=== PATIENT | male | born 1990 | race African-American/Black ===

== ENCOUNTER 2019-04-04 09:15 | Emergency (ER) | payer SELFPAY ==
[~2019-04-04 09:15] MED LIST: Sodium Chloride 0.9% 100 ML BAG ONE
[2019-04-04] MEDS ORDERED: Ondansetron PF 4 MG/2 ML Vial ONE (09:44)
[2019-04-04] MEDS ORDERED: Sodium Chloride 0.9% 1,000 ML ONE ×2 (09:46→10:27)
[2019-04-04 10:06] LABS: Hemoglobin 15.5 g/dL (14.0-18.0); Mean Corpuscular HGB CONC 29.9 g/dL (32.0-36.0); Mean Corpuscular Hemoglobin 26.3 pg (27.0-31.0); Mean Corpuscular Volume 88.1 fL (78.0-98.0); Mean Platelet Volume 9.8 fL (7.4-10.4); Platelet Count 212 thou/uL (130-400); RBC Distribution Width 11.6 % (11.5-14.5); Red Blood Cell (RBC) Count 5.89 mill/uL (4.70-6.10); White Blood Cell (WBC) Count 10.6 thou/uL (4.8-10.8)
[2019-04-04 10:08] LABS: ALT (SGPT) 16 U/L (8-55); AST (SGOT) 22 U/L (5-34); Albumin 4.8 g/dL (3.5-5.0); Alkaline Phosphatase 38 U/L (40-110); Anion Gap 22 mmol/L (10-20); BUN (Urea Nitrogen) 13 mg/dL (8.9-20.6); Bilirubin, Total 1.3 mg/dL (0.2-1.2); CRP (Inflammatory) Less than 0.50 mg/dL (= or < 0.5); Calc. Creatinine Clearance 0 mL/min (70-130); Calcium 10.8 mg/dL (7.8-10.44); Carbon Dioxide 20 mmol/L (22-29); Chloride 105 mmol/L (98-107); Estimated GFR-MDRD Greater than 90; Globulin 3.7 g/dL (2.4-3.5); Glucose 104 mg/dL (70-105); Potassium 3.8 mmol/L (3.5-5.1); Protein, Total 8.5 g/dL (6.0-8.3); Sodium 143 mmol/L (136-145)
[2019-04-04 10:18] LABS: Band 6 % (5-11); Lymphocytes 8 % (21-51); MDiff Complete? YES; Manual Diff?? YES; Monocytes 4 % (0-10); Neutrophil 82 % (42-75); Platelet Morphology Comment Appears Adequate; RBC Morphology Normal
[2019-04-04] MEDS ORDERED: Dextrose 5 % And 0.9 % NaCl 1,000 ML ONE ×2 (11:39→14:14)
[2019-04-04] MEDS ORDERED: Iopamidol 370 76% 100 ML VIAL ONE (12:29)
[2019-04-04 12:35] LABS: Bilirubin Negative (Negative); Blood, Urine Negative (Negative); Clarity Clear (Clear); Glucose, Urine (Dipstick) 100 mg/dL (Negative); Leukocyte Negative (Negative); Nitrite Negative (Negative); Protein, Urine (Dipstick) Negative (Neg-Trace)
[2019-04-04] MEDS ORDERED: Promethazine HCl 25 MG/ML VIAL ONE (12:39)
[2019-04-04 12:47] LABS: Amphetamine Not Detected (NotDetected); Barbiturates Screen Not Detected (NotDetected); Benzodiazepine Screen Not Detected (NotDetected); Cocaine Metabolite Screen Not Detected (NotDetected); Medtox Control Line Valid? VALID (VALID); Methadone Not Detected (NotDetected); Methamphetamine Not Detected (NotDetected); Opiate Screen Not Detected (NotDetected); Oxycodone Screen Not Detected (NotDetected); Phencyclidine (PCP) Not Detected (NotDetected); THC/Cannabinoid Screen Detected (NotDetected); Tricyclic Screen Not Detected (NotDetected)
[2019-04-04 12:50] LABS: Lactic Acid 5.3 mmol/L (0.5-2.2)
--- NOTE | 2019-04-04 13:21 | RAD ---
EXAM: Single view of the chest HISTORY: Fever COMPARISON: None FINDINGS: Single view of the chest shows a normal sized cardiomediastinal silhouette. There is no sharon dence of consolidation, mass, or pleural effusion. The bones are unremarkable. IMPRESSION: No evidence of acute cardiopulmonary disease
[2019-04-04] MEDS ORDERED: Cefepime 2 GM VIAL ONE (14:14)
[2019-04-04] MEDS ORDERED: Vancomycin HCl 500 MG VIAL ONE ×3 (14:14→14:17)
[2019-04-04] MEDS ORDERED: metroNIDAZOLE 500 MG/100 ML BAG ONE (14:14)
--- NOTE | 2019-04-04 15:27 | CT ---
CT Abdomen Pelvis W Con: 04/04/2019 2:34 PM CLINICAL INFORMATION: Epigastric abdominal pain with nausea and vomiting COMPARISON: None. TECHNIQUE: Multiple contiguous axial images were obtained and a CT of the abdomen and pelvis with IV contrast. C oronal and sagittal reformats were performed. FINDINGS: Lower Chest: within normal limits. Abdomen: Liver: Periportal edema is seen. No focal liver lesions are present. Bile Ducts: Normal caliber. Gallbladder: No calcified gallstones. Normal caliber wall. Fluid is seen surrounding the gallbladder. Pancreas: within normal limits. Spleen: within normal limits. Adrenals: within normal limits. Kidneys: 1.5 cm left renal cyst. Pelvis: Reproductive Organs: No pelvic masses. Ureters: within normal limits. Bladder: within normal limits. Peritoneum: No ascites or free air, no fluid collection. Bowel: Normal caliber. Normal appendix. Mesentery and Retroperitoneum: No enlarged mesenteric or retroperitoneal lymph nodes. Vessels: Normal. Abdominal Wall: within normal limits. Bones: Within normal limits IMPRESSION: Nonspecific fluid surrounding the gallbladder. A right upper quadrant ultrasound is recommended for f urther evaluation.
== END 2019-04-04 14:57 | disposition short-term general hospital (02) ==
LOC: MADERS 09:15
DX: A41.9 Sepsis, unspecified organism (principal); K81.9 Cholecystitis, unspecified; R11.2 Nausea with vomiting, unspecified
CPT/HCPCS: 36415; 71045; 74177; 80053; 80306; 81003; 82150; 82550; 83605; 83690; 85025; 86140; 87040; 87804; 96361; 96365; 96367; 96368; 96375; J0692; J2405; J2550; J3370; J3490; J7042; J7050; Q9967